=== PATIENT | female | born 1925 | race Caucasian/White ===

== ENCOUNTER 2017-05-15 13:12 | Outpatient (CLI) | payer MEDICARE ==
--- NOTE | 2017-05-15 14:25 | XRay Report ---
LEFT KNEE RADIOGRAPHS INDICATION: Left knee pain. COMPARISON: None similar. FINDINGS: AP, lateral and oblique left knee radiographs suggest moderate suprapatellar soft tissue prominence/swelling/effusion. Extensive atherosclerotic vascular calcifications. Osteopenia/osteoporosis. Various degenerative spurring, though most involving the lateral compartment with moderate joint space narrowing as well. Faint chondrocalcinosis may also be noted within the medial joint space. CONCLUSION: Moderate left knee degenerative changes with suprapatellar soft tissue swelling/effusion possible, as described. Please correlate. Thank you for the opportunity to participate in this patient's care.
== END 2017-05-15 13:13 | disposition home or self-care (01) ==
LOC: XRAY 13:12
PROVIDERS: ATTEND Internal Medicine
DX: M17.12 Unilateral primary osteoarthritis, left knee (principal); I70.0 Atherosclerosis of aorta